=== PATIENT | male | born 1995 | race Caucasian/White ===

== ENCOUNTER 2024-12-13 19:39 | Emergency (ER) | payer OTHER, SELFPAY ==
[2024-12-13 19:42] VITALS: BP 125/76
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
== END 2024-12-13 20:30 | disposition home or self-care (01) ==
LOC: EMR 19:39
PROVIDERS: EMERGENCY PHYSICIAN Student in an Organized Health Care Education/Training Program; FAMILY PHYSICIAN Family Medicine
DX: S80.11XA Contusion of right lower leg, initial encounter (principal); W22.8XXA Striking against or struck by other objects, initial encounter
CPT/HCPCS: 99282